=== PATIENT | male | born 1965 | race Caucasian/White ===

== ENCOUNTER 2017-03-20 04:30 | Observation (INO) | payer OTHER ==
[~2017-03-20] VITALS: Ht 182.9 cm; Wt 75.0 kg
[2017-03-20 04:33] VITALS: BP 168/81; PULSE 77; RESP 20; TEMP 97.3; O2SAT 99
[2017-03-20] MEDS ORDERED: SODIUM CHLORIDE 0.9% FLUSH 10 ML FLUSH IVF PRN (05:15)
[2017-03-20 05:33] LABS: AUTOMATED NEUTROPHIL # 3.9 TH/MM3 (1.8-7.7); BASOPHIL # 0.1 TH/MM3 (0-0.2); BASOPHIL % 0.8 % (0.0-2.0); EOSINOPHIL # 0.2 TH/MM3 (0-0.4); HEMATOCRIT 37.2 % (39.0-51.0); HEMOGLOBIN 13.2 GM/DL (13.0-17.0); LYMPH % 30.9 % (9.0-44.0); LYMPHOCYTE # 2.2 TH/MM3 (1.0-4.8); MEAN CELL VOLUME 85.3 FL (80.0-100.0); MEAN CORPUSCULAR HEMOGLOBIN 30.2 PG (27.0-34.0); MEAN CORPUSCULAR HGB CONC 35.4 % (32.0-36.0); MEAN PLATELET VOLUME 6.5 FL (7.0-11.0); MONO % 9.4 % (0.0-8.0); MONOCYTE # 0.7 TH/MM3 (0-0.9); NEUT % 55.9 % (16.0-70.0); PLATELET COUNT 195 TH/MM3 (150-450); RED BLOOD COUNT 4.36 MIL/MM3 (4.50-5.90); RED CELL DISTRIBUTION WIDTH 12.5 % (11.6-17.2)
--- NOTE | 2017-03-20 05:35 | RADRPT ---
EXAM DATE/TIME: 03/20/2017 05:19 [place] COMPARISON: CT ABDOMEN & PELVIS W/O CONTRAST, June 12, 2012, 11:15. INDICATIONS : Left flank pain. ORAL CONTRAST: No oral contrast ingested. RADIATION DOSE: 13.12 CTDIvol (mGy) MEDICAL HISTORY : Renal calculi. SURGICAL HISTORY : None. ENCOUNTER: Initial ACUITY: 1 day PAIN SCALE: 10/10 LOCATION: Left flank TECHNIQUE: Volumetric scanning of the abdomen and pelvis was performed. Using automated exposure control and ad justment of the mA and/or kV according to patient size, radiation dose was kept as low as reasonably achievable to obtain optimal diagnostic quality images. DICOM format image data is available electro nically for review and comparison. FINDINGS: LOWER LUNGS: The visualized lower lungs are clear. LIVER: Homogeneous density without lesion. There is no dilation of the biliary tree. No calcified gallston es. SPLEEN: Normal size without lesion. PANCREAS: Within normal limits. KIDNEYS: Normal in size and shape. There is moderate to severe left hydronephrosis caused by 2 stones within the left ureter. The larger more distal stone measures 6 x 5 mm and is located in the upper pelvis at the level of the iliac vessel crossing. The slightly smaller more proximal stone is in the mid urete r measuring 6 x 3 mm. There additionally is a 2 mm nonobstructing stone in the left lower pole collec ting system and a 2 mm nonobstructing stone in the right mid renal collecting system. There is an 18 mm cyst at the lower pole of the right kidney. ADRENAL GLANDS: Within normal limits. VASCULAR: There is no aortic aneurysm. There is mild atherosclerotic disease. BOWEL/MESENTERY: The stomach, small bowel, and colon demonstrate no acute abnormality. There is no free intraperitone al air or fluid. ABDOMINAL WALL: Within normal limits. RETROPERITONEUM: There is no lymphadenopathy. BLADDER: No wall thickening or mass. REPRODUCTIVE: Within normal limits. INGUINAL: There is no lymphadenopathy. There is a small fat containing right inguinal hernia. MUSCULOSKELETAL: Normal degenerative changes of the spine. CONCLUSION: 1. There are 2 stones within the left ureter causing moderate to severe left hydronephrosis, hydroure ter, and perinephric inflammation. The larger more distal stone measures 6 x 5 mm and the smaller mor e proximal stone measures 6 x 3 mm. 2. There is an additional 2 mm nonobstructing stone within each kidney. Elijah Hanley MD on March 20, 2017 at 5:28 Board Certified Radiologist. This report was verified electronically.
[2017-03-20 05:43] LABS: BICARBONATE 25.5 MEQ/L (21.0-32.0); CALCIUM 8.3 MG/DL (8.5-10.1); CREATININE 1.48 MG/DL (0.60-1.30)
[2017-03-20] MEDS ORDERED: KETOROLAC TROMETHAMINE 30 MG/ML (IVP) VIAL IV PUSH ONE (05:45)
[2017-03-20] MEDS ORDERED: MORPHINE SULFATE 4 MG/ML INJ IV PUSH ONE (05:45)
--- NOTE | 2017-03-20 05:59 | PD ---
HPI . Flank/kidney pain Chief Complaint: Flank/Kidney Pain Time Seen by Provider: 04:39 Travel History International Travel<30 days: No Contact w/Intl Traveler<30days: No Traveled to known affect area: No History of Present Illness HPI 51-year-old male history kidney stones complains of having severe left flank pain consistent with probable renal colic. Patient has difficulty urinating consistent with prior presentation of renal colic. Patient denies fevers chills sweats, dysuria frequency frequency, or ned hematuria. Positive nausea no vomiting or diarrhea. PFSH Past Medical History Narrative Medical Past medical history reviewed. Prior lithotripsy Cancer: No Cardiovascular Problems: No Diabetes: No Endocrine: No Gastrointestinal Disorders: No Genitourinary: Yes (HISTORY OF KIDNEY STONES (MULTIPLE) ) Hepatitis: No Hiatal Hernia: No Hypertension: No Immune Disorder: No Kidney Stones: Yes Medical other: No Musculoskeletal: Yes (LOW BACK PAIN; ARTHRITIS, RIGHT SHOULDER) Neurologic: No Psychiatric: No Reproductive: No Respiratory: No Immunizations Current: Yes Thyroid Disease: No Tetanus Vaccination: Unknown Influenza Vaccination: No Past Surgical History Abdominal Surgery: No AICD: No Body Medical Devices: NONE Cardiac Surgery: No Ear Surgery: No Endocrine Surgery: No Eye Surgery: No Genitourinary Surgery: Yes (KIDNEY STONES) Joint Replacement: No Neurologic Surgery: No Oral Surgery: No Pacemaker: No Thoracic Surgery: No Other Surgery: Yes Social History Alcohol Use: No Tobacco Use: Yes (1/2 PACK PER DAY) Substance Use: No Allergies-Medications (Allergen,Severity, Reaction): Coded Allergies: hydrocodone (Unverified Adverse Reaction, Severe, Nausea/Vomiting, 03/20/17) GETS VERY HYPER Reported Meds & Prescriptions Reported Meds & Active Scripts Active Narrative Medication Allergies and medications reviewed. Patient's hydrocodone allergy is nausea and hyperactivity, no urticaria or anaphylactic reaction Review of Systems Except as stated in HPI: all other systems reviewed are Neg General / Constitutional: No: Fever Eyes: No: Visual changes HENT: No: Headaches Cardiovascular: No: Chest Pain or Discomfort Respiratory: No: Shortness of Breath Gastrointestinal: No: Abdominal Pain Genitourinary: Positive: Decreased Urinary Output, Flank Pain, No: Urgency, Frequency, Dysuria, Hematuria Musculoskeletal: No: Pain Skin: No Rash Neurologic: No: Weakness Psychiatric: No: Depression Endocrine: No: Polydipsia Hematologic/Lymphatic: No: Easy Bruising Physical Exam Narrative GENERAL: Awake alert oriented 3 no acute distress but uncomfortable. SKIN: Warm and dry. Color is normal no diaphoresis cyanosis or pallor HEAD: Atraumatic. Normocephalic. EYES: Pupils equal and round. No scleral icterus. No injection or drainage. ENT: No nasal bleeding or discharge. Mucous membranes pink and moist. NECK: Trachea midline. No JVD. Supple nontender full range of motion CARDIOVASCULAR: Regular rate and rhythm. S1-S2 no murmurs rubs gallops RESPIRATORY: No accessory muscle use. Clear to auscultation. Breath sounds equal bilaterally. GASTROINTESTINAL: Abdomen soft, non-tender, nondistended. Hepatic and splenic margins not palpable. No CVA tenderness MUSCULOSKELETAL: Extremities without clubbing, cyanosis, or edema. No obvious deformities. NEUROLOGICAL: Awake and alert. No obvious cranial nerve deficits. Motor grossly within normal limits. Five out of 5 muscle strength in the arms and legs. Normal speech. PSYCHIATRIC: Appropriate mood and affect; insight and judgment normal. Data Data Last Documented VS Vital Signs Date Time Temp Pulse Resp B/P (MAP) Pulse Ox O2 Delivery O2 Flow Rate FiO2 03/20/17 04:33 97.3 77 20 168/81 (110) 99 Orders Orders Complete Blood Count With Diff (03/20/17 05:03) Basic Metabolic Panel (Bmp) (03/20/17 05:03) Urinalysis - C+S If Indicated (03/20/17 05:03) Ct Abd/Pel W/O Iv Contrast (03/20/17 05:03) Ecg Monitoring (03/20/17 05:03) Iv Access Insert/Monitor (03/20/17 05:03) Sodium Chloride 0.9% Flush (Ns Flush) (03/20/17 05:15) Ed Poc Ultrasound (03/20/17 05:03) Ketorolac Inj (Toradol Inj) (03/20/17 05:45) Morphine Inj (Morphine Inj) (03/20/17 05:45) Labs Laboratory Tests Test 03/20/17 05:11 White Blood Count 7.0 TH/MM3 Red Blood Count 4.36 MIL/MM3 Hemoglobin 13.2 GM/DL Hematocrit 37.2 % Mean Corpuscular Volume 85.3 FL Mean Corpuscular Hemoglobin 30.2 PG Mean Corpuscular Hemoglobin Concent 35.4 % Red Cell Distribution Width 12.5 % Platelet Count 195 TH/MM3 Mean Platelet Volume 6.5 FL Neutrophils (%) (Auto) 55.9 % Lymphocytes (%) (Auto) 30.9 % Monocytes (%) (Auto) 9.4 % Eosinophils (%) (Auto) 3.0 % Basophils (%) (Auto) 0.8 % Neutrophils # (Auto) 3.9 TH/MM3 Lymphocytes # (Auto) 2.2 TH/MM3 Monocytes # (Auto) 0.7 TH/MM3 Eosinophils # (Auto) 0.2 TH/MM3 Basophils # (Auto) 0.1 TH/MM3 CBC Comment DIFF FINAL Differential Comment Blood Urea Nitrogen 24 MG/DL Creatinine 1.48 MG/DL Random Glucose 90 MG/DL Calcium Level 8.3 MG/DL Sodium Level 139 MEQ/L Potassium Level 4.0 MEQ/L Chloride Level 107 MEQ/L Carbon Dioxide Level 25.5 MEQ/L Anion Gap 7 MEQ/L Estimat Glomerular Filtration Rate 50 ML/MIN [facility] Medical Decision Making Medical Screen Exam Complete: Yes Emergency Medical Condition: Yes Medical Record Reviewed: Yes Differential Diagnosis Renal colic, urinary retention, pyelonephritis Narrative Course CT abdomen and pelvis noncontrast reviewed, large multiple ureteral stones left mid ureter with moderate to severe hydroureter and hydronephrosis with perinephric stranding. Labs reviewed, patient has elevated creatinine 1.48 with a decreased GFR of 50. Case discussed with Dr. Ryan from urology, care plan developed. Patient be admitted to hospital service, evaluation for possible lithotripsy later today. [facility], patient to be admitted to Dr. Elizabeth's service Diagnosis Primary Impression: Renal colic on left side Additional Impression: Ureterolithiasis Admitting Information Admitting Physician Requests: Observation Jaciel Thacker MD Mar 20, 2017 05:59
[2017-03-20] MEDS ORDERED: LISI2.5T3 PO (07:01)
[2017-03-20] MEDS ORDERED: HYDR12.57 PO (07:01)
[2017-03-20 07:38] VITALS: BP 134/82; PULSE 63; RESP 16; O2SAT 99
[2017-03-20] MEDS ORDERED: MORPHINE SULFATE 4 MG/ML INJ IV PUSH PRN (07:45)
[2017-03-20] MEDS ORDERED: SODIUM CHLORIDE 0.9% FLUSH 10 ML FLUSH IV FLUSH PRN (07:45)
[2017-03-20] MEDS ORDERED: MAGNESIUM HYDROXIDE SUSP 30 ML CUP PO PRN (07:45)
[2017-03-20] MEDS ORDERED: ONDANSETRON HCL 4 MG/2 ML VIAL IVP PRN (07:45)
[2017-03-20] MEDS ORDERED: NALOXONE HCL 0.4 MG/ML AMP IV PUSH PRN (07:45)
[2017-03-20] MEDS ORDERED: ACETAMINOPHEN 325 MG TAB PO PRN (07:45)
--- NOTE | 2017-03-20 07:56 | HHI.HP ---
HPI Service [facility] Hospitalists Primary Care Physician Joaquín Centeno D.O. Admission Diagnosis Left Obstructive Ureterolithiasis, Renal Colic Chief Complaint: left flank pain and difficulty passing urine Travel History International Travel<30 Days: No Contact w/Intl Traveler <30 Da: No Traveled to Known Affected Are: No History of Present Illness This is a 51 year old male patient with past medical history which includes anxiety, chronic kidney disease stage III, GERD, hypertension, and kidney stones. Patient presents to the ER with complains of severe left flank pain consistent. Patient report that the left flank pain started Sunday night and since then has gotten progressively worse. The pain does radiant around the left side to abdomen area. Patient also has difficulty urinating similar to his prior episode of obstructing renal calculi. Patient had associated nausea but no vomiting. Patient has had two lithotripsies in the past. His last lithotripsy was 6 years ago. Patient denies fevers chills sweats, dysuria frequency frequency, or ned hematuria. CT abdomen and pelvis reviewed and reveals there are 2 stones within the left ureter causing moderate to severe left hydronephrosis, hydroureter, para- nephrotic inflammation the large more distal stone measures 6 x 5 mm and a smaller more proximal stone measures 6 x 3 mm. There is additional 2 mm nonobstructing stone in each kidney Past Family Social History Past Medical History anxiety, chronic kidney disease stage III, GERD, hypertension, and kidney stones Past Surgical History Right knee arthroscopically Lithotripsy Reported Medications Hydrochlorothiazide 12.5 Mg Cap 12.5 Mg PO BID Lisinopril 2.5 Mg Tab 2.5 Mg PO DAILY Allergies: Coded Allergies: hydrocodone (Unverified Adverse Reaction, Severe, Nausea/Vomiting, 03/20/17) GETS VERY HYPER Family History Reviewed and noncontributory Social History Former tobacco user quit smoking 3 years ago prior to that smoked 1 PPD for 20 years Occasional EtOH use Denies illicit drug use Physical Exam Vital Signs Vital Signs Date Time Temp Pulse Resp B/P (MAP) Pulse Ox O2 Delivery O2 Flow Rate FiO2 03/20/17 07:38 63 16 134/82 (99) 99 Room Air 03/20/17 04:33 97.3 77 20 168/81 (110) 99 Physical Exam GENERAL: This is a well-nourished, well-developed patient, in no apparent distress. SKIN: No rashes, ecchymoses or lesions. Cool and dry. HEAD: Atraumatic. Normocephalic. No temporal or scalp tenderness. EYES: Pupils equal round and reactive. Extraocular motions intact. No scleral icterus. No injection or drainage. ENT: Nose without bleeding, purulent drainage or septal hematoma. Throat without erythema, tonsillar hypertrophy or exudate. Uvula midline. Airway patent. NECK: Trachea midline. No JVD or lymphadenopathy. Supple, nontender, no meningeal signs. CARDIOVASCULAR: Regular rate and rhythm without murmurs, gallops, or rubs. RESPIRATORY: Clear to auscultation. Breath sounds equal bilaterally. No wheezes , rales, or rhonchi. GASTROINTESTINAL: Abdomen soft, non-tender, nondistended. No hepato-splenomegaly , or palpable masses. No guarding. MUSCULOSKELETAL: Extremities without clubbing, cyanosis, or edema. No joint tenderness, effusion, or edema noted. No calf tenderness. Negative Homans sign bilaterally. NEUROLOGICAL: Awake and alert. Cranial nerves II through XII intact. Motor and sensory grossly within normal limits. Five out of 5 muscle strength in all muscle groups. Normal speech. Laboratory Laboratory Tests Test 03/20/17 05:11 White Blood Count 7.0 Red Blood Count 4.36 Hemoglobin 13.2 Hematocrit 37.2 Mean Corpuscular Volume 85.3 Mean Corpuscular Hemoglobin 30.2 Mean Corpuscular Hemoglobin Concent 35.4 Red Cell Distribution Width 12.5 Platelet Count 195 Mean Platelet Volume 6.5 Neutrophils (%) (Auto) 55.9 Lymphocytes (%) (Auto) 30.9 Monocytes (%) (Auto) 9.4 Eosinophils (%) (Auto) 3.0 Basophils (%) (Auto) 0.8 Neutrophils # (Auto) 3.9 Lymphocytes # (Auto) 2.2 Monocytes # (Auto) 0.7 Eosinophils # (Auto) 0.2 Basophils # (Auto) 0.1 CBC Comment DIFF FINAL Differential Comment Blood Urea Nitrogen 24 Creatinine 1.48 Random Glucose 90 Calcium Level 8.3 Sodium Level 139 Potassium Level 4.0 Chloride Level 107 Carbon Dioxide Level 25.5 Anion Gap 7 Estimat Glomerular Filtration Rate 50 Result Diagram: 03/20/1751003/20/17510 Caprini VTE Risk Assessment Caprini VTE Risk Assessment: No/Low Risk (score <= 1) Caprini Risk Assessment Model Point Value = 1 Point Value = 2 Point Value = 3 Point Value = 5 Age 41-60 Minor surgery BMI > 25 kg/m2 Swollen legs Varicose veins or History of unexplained or recurrent spontaneous Oral contraceptives or hormone replacement Sepsis (< 1 month) Serious lung disease, including pneumonia (< 1 month) Abnormal pulmonary function Acute myocardial infarction Congestive heart failure (< 1 month) History of inflammatory bowel disease Medical patient at bed rest Age 61-74 Arthroscopic surgery Major open surgery (> 45 min) Laparoscopic surgery (> 45 min) Malignancy Confined to bed (> 72 hours) Immobilizing plaster cast Central venous access Age >= 75 History of VTE Family history of VTE Factor V Leiden Prothrombin [id number] Lupus anticoagulant Anticardiolipin antibodies Elevated serum homocysteine Heparin-induced thrombocytopenia Other congenital or acquired thrombophilia Stroke (< 1 month) Elective arthroplasty Hip, pelvis, or leg fracture Acute spinal cord injury (< 1 month) Prophylaxis Regimen Total Risk Factor Score Risk Level Prophylaxis Regimen 0-1 Low Early ambulation 2 Moderate Order ONE of the following: *Sequential Compression Device (SCD) *Heparin 5000 units SQ BID 3-4 Higher Order ONE of the following medications: *Heparin 5000 units SQ TID *Enoxaparin/Lovenox 40 mg SQ daily (WT < 150 kg, CrCl > 30 mL/min) *Enoxaparin/Lovenox 30 mg SQ daily (WT < 150 kg, CrCl > 10-29 mL/min) *Enoxaparin/Lovenox 30 mg SQ BID (WT < 150 kg, CrCl > 30 mL/min) AND/OR *Sequential Compression Device (SCD) 5 or more Highest Order ONE of the following medications: *Heparin 5000 units SQ TID (Preferred with Epidurals) *Enoxaparin/Lovenox 40 mg SQ daily (WT < 150 kg, CrCl > 30 mL/min) *Enoxaparin/Lovenox 30 mg SQ daily (WT < 150 kg, CrCl > 10-29 mL/min) *Enoxaparin/Lovenox 30 mg SQ BID (WT < 150 kg, CrCl > 30 mL/min) AND *Sequential Compression Device (SCD) Assessment and Plan Problem List: (1) Hydronephrosis, left ICD Codes: N13.30 - Unspecified hydronephrosis Plan: Patient presents to [facility] ER with complains of severe left flank pain consistent with probable renal colic. Patient has difficulty urinating similar to his prior episode of obstructing renal calculi. Patient has associated nausea but no vomiting. CT abdomen and pelvis reviewed and reveals there are 2 stones within the left ureter causing moderate to severe left hydronephrosis, hydroureter, para- nephrotic inflammation the large more distal stone measures 6 x 5 mm and a smaller more proximal stone measures 6 x 3 mm. There is additional 2 mm nonobstructing stone in each kidney [facility] provider discuss case with neurology Dr. Epps, plan for lithotripsy later today IV fluid Rocephin IV Morphine as needed for pain NPO (2) Renal calculus, left ICD Codes: N20.0 - Renal calculus, left Status: Acute (3) HTN (hypertension) ICD Codes: I10 - Essential (primary) hypertension Plan: Patient takes Lisinopril 2.5 mg at home will hold at this time monitor BP Assessment and Plan Patient examined. Assessment and plan formulated with Brandy Roque PA-C. I agree with the above. 2 left ureter stones. hydroureter/nephosis cont pain control and ivf. flomax added await Urology. Brandy Roque Mar 20, 2017 07:56 Luis Felipe Simmons MD Mar 20, 2017 13:59
[2017-03-20] MEDS: SODIUM CHLORIDE 0.9% FLUSH 10 ML FLUSH IV FLUSH SCH ×2 (08:35→21:00)
[2017-03-20] MEDS: cefTRIAXone INJ 1,000 MG in SODIUM CHLORIDE 0.9% INJ 100 ML IV SCH (08:35)
[2017-03-20] MEDS: DOCUSATE SODIUM 50 MG/SENNA 8.6 MG TAB PO SCH ×2 (08:36→21:55)
[2017-03-20 09:45] LABS: BILIRUBIN, URINE NEG (NEG); BLOOD, URINE LARGE (NEG); GLUCOSE,URINE NEG (NEG); KETONE, URINE NEG (NEG); NITRITE,URINE NEG (NEG); PH, URINE 5.5 (5.0-8.5); URINE COLOR YELLOW (YELLW/STRAW); URINE LEUKOCYTE ESTERASE NEG (NEG)
[2017-03-20] MEDS: SODIUM CHLOR 0.9% 1000 ML INJ 1,000 ML IV SCH ×2 (09:45→21:55)
[2017-03-20 10:17] VITALS: BP 140/81; PULSE 62; RESP 18; TEMP 97.5; O2SAT 98
[2017-03-20] MEDS ORDERED: TAMSULOSIN HCL 0.4 MG CAP PO ONE (12:30)
[2017-03-20 12:34] VITALS: BP 143/81; PULSE 65; RESP 18; TEMP 97.7; O2SAT 97
[2017-03-20] MEDS: MORPHINE SULFATE 4 MG/ML INJ IV PUSH PRN ×4 (12:41→22:05)
--- NOTE | 2017-03-20 15:21 | PD.CONS ---
HPI Service Urology Consult Requested By Randal Roque Reason for Consult Obstructing left ureteral calculi Primary Care Physician Joaquín Centeno D.O. Diagnosis: (1) Hydronephrosis, left ICD Code: N13.30 - Unspecified hydronephrosis (2) Renal calculus, left ICD Code: N20.0 - Renal calculus, left (3) HTN (hypertension) ICD Code: I10 - Essential (primary) hypertension History of Present Illness 51-year-old gentleman with history of recurrent nephrolithiasis who is status post extracorporeal shockwave lithotripsy approximately [address] Mike who presents now with left flank pain that began late Sunday evening. The symptoms became progressively worse and thus he presented to the emergency room for further evaluation. While in the emergency room, a CT scan stone protocol was performed that demonstrated to obstructing mid left ureteral stones measuring 6 mm in size each. Also noted were bilateral small 2 mm renal calculi. Patient was admitted for pain control and a urology consult placed. Patient has been afebrile. He denies gross hematuria. Review of Systems Constitutional: DENIES: Fever, Chills Gastrointestinal: COMPLAINS OF: Abdominal pain Genitourinary: DENIES: Hematuria Musculoskeletal: COMPLAINS OF: Back pain (Left side left flank) Except as stated in HPI: all other systems reviewed are Neg Past Family Social History Past Medical History Recurrent nephrolithiasis Chronic kidney disease stage III GERD Hypertension Past Surgical History Status post right knee arthroscopy Status post multiple shockwave lithotripsy procedures Reported Medications Refer to EMR Allergies: Coded Allergies: hydrocodone (Unverified Adverse Reaction, Severe, Nausea/Vomiting, 03/20/17) GETS VERY HYPER Active Ordered Medications Refer to EMR Family History Reviewed and noncontributory Social History Former smoker 1 pack per day 20 years who quit 3 years ago Occasional alcohol use Denies illicit drug usage Physical Exam Vital Signs Date Time Temp Pulse Resp B/P (MAP) Pulse Ox O2 Delivery O2 Flow Rate FiO2 03/20/17 12:34 97.7 65 18 143/81 (101) 97 03/20/17 10:17 97.5 62 18 140/81 (100) 98 03/20/17 09:40 03/20/17 07:38 63 16 134/82 (99) 99 Room Air 03/20/17 04:33 97.3 77 20 168/81 (110) 99 Physical Exam GENERAL: This is a well-nourished, well-developed patient, in no apparent distress. SKIN: No rashes, ecchymoses or lesions. Cool and dry. HEAD: Atraumatic. Normocephalic. No temporal or scalp tenderness. EYES: Pupils equal round and reactive. Extraocular motions intact. No scleral icterus. No injection or drainage. ENT: Nose without bleeding, purulent drainage or septal hematoma. Throat without erythema, tonsillar hypertrophy or exudate. Uvula midline. Airway patent. NECK: Trachea midline. No JVD or lymphadenopathy. Supple, nontender, no meningeal signs. CARDIOVASCULAR: Regular rate and rhythm without murmurs, gallops, or rubs. RESPIRATORY: Clear to auscultation. Breath sounds equal bilaterally. No wheezes , rales, or rhonchi. GASTROINTESTINAL: Abdomen soft, non-tender, nondistended. No hepato-splenomegaly , or palpable masses. No guarding. GENITOURINARY: No CVA tenderness, bladder not distended MUSCULOSKELETAL: Extremities without clubbing, cyanosis, or edema. No joint tenderness, effusion, or edema noted. No calf tenderness. Negative Homans sign bilaterally. NEUROLOGICAL: Awake and alert. Cranial nerves II through XII intact. Motor and sensory grossly within normal limits. Five out of 5 muscle strength in all muscle groups. Normal speech. Lab results reviewed: Yes Laboratory Tests Test 03/20/17 05:11 03/20/17 09:15 White Blood Count 7.0 Red Blood Count 4.36 Hemoglobin 13.2 Hematocrit 37.2 Mean Corpuscular Volume 85.3 Mean Corpuscular Hemoglobin 30.2 Mean Corpuscular Hemoglobin Concent 35.4 Red Cell Distribution Width 12.5 Platelet Count 195 Mean Platelet Volume 6.5 Neutrophils (%) (Auto) 55.9 Lymphocytes (%) (Auto) 30.9 Monocytes (%) (Auto) 9.4 Eosinophils (%) (Auto) 3.0 Basophils (%) (Auto) 0.8 Neutrophils # (Auto) 3.9 Lymphocytes # (Auto) 2.2 Monocytes # (Auto) 0.7 Eosinophils # (Auto) 0.2 Basophils # (Auto) 0.1 CBC Comment DIFF FINAL Differential Comment Blood Urea Nitrogen 24 Creatinine 1.48 Random Glucose 90 Calcium Level 8.3 Sodium Level 139 Potassium Level 4.0 Chloride Level 107 Carbon Dioxide Level 25.5 Anion Gap 7 Estimat Glomerular Filtration Rate 50 Urine Color YELLOW Urine Turbidity HAZY Urine pH 5.5 Urine Specific [place] 1.025 Urine Protein 30 Urine Glucose (UA) NEG Urine Ketones NEG Urine Occult Blood LARGE Urine Nitrite NEG Urine Bilirubin NEG Urine Urobilinogen LESS THAN 2.0 Urine Leukocyte Esterase NEG Urine RBC 143 Urine WBC 1 Microscopic Urinalysis Comment CULT NOT INDICATED Result Diagram: 03/20/17 0511 03/20/17 0511 Personally reviewed images: Yes Imaging Last Impressions Abdomen/Pelvis CT 03/20/17 0503 Signed Impressions: Service Date/Time: Monday, March 20, 2017 05:19 - CONCLUSION: 1. There are 2 stones within the left ureter causing moderate to severe left hydronephrosis , hydroureter, and perinephric inflammation. The larger more distal stone measures 6 x 5 mm and the smaller more proximal stone measures 6 x 3 mm. 2. There is an additional 2 mm nonobstructing stone within each kidney. Elijah Hanley MD Assessment and Plan Assessment and Plan Urologic impression: #1 2 obstructing left mid ureteral calculi each measuring 6 mm #2 Bilateral 2 mm renal calculi Plan: 1. N.p.o. after midnight 2. Patient scheduled for cystoscopy, left retrograde pyelogram and left ureteral stent placement at 12:30 PM tomorrow 3. Will eventually require outpatient shockwave lithotripsy Eyad Epps MD Mar 20, 2017 15:21
[2017-03-20 16:08] VITALS: BP 148/87; PULSE 82; RESP 18; TEMP 99; O2SAT 99
[2017-03-20] MEDS ORDERED: CHLORHEXIDINE GLUCONATE 2 % 1 PACK (2 CLOTHS) TOPICAL PRN (17:15)
[2017-03-20] MEDS ORDERED: LACTATED RINGER'S 1000 ML IV PRN (17:15)
[2017-03-20] MEDS ORDERED: METOPROLOL TARTRATE 25 MG TAB PO PRN (17:15)
[2017-03-20] MEDS ORDERED: SODIUM CHLORID 0.9% 500 ML IV PRN (17:15)
[2017-03-20] MEDS ORDERED: POVIDONE IODINE 5% (ANTISEPSIS KIT) 4 APPLICATIONS EACH NARE PRN (17:15)
[2017-03-20 20:00] VITALS: BP 135/79; PULSE 75; RESP 20; TEMP 98.9; O2SAT 96
[2017-03-21] MEDS: MORPHINE SULFATE 4 MG/ML INJ IV PUSH PRN ×3 (01:05→07:32)
[2017-03-21 01:22] VITALS: BP 128/75; PULSE 80; RESP 17; TEMP 98.7; O2SAT 95
[2017-03-21 04:35] VITALS: BP 138/81; PULSE 80; RESP 16; TEMP 99.4; O2SAT 96
[2017-03-21 07:43] VITALS: O2SAT 92
[2017-03-21 08:22] LABS: BASOPHIL # 0.1 TH/MM3 (0-0.2); EOSINOPHIL # 0.2 TH/MM3 (0-0.4); EOSINOPHIL % 1.9 % (0.0-4.0); HEMATOCRIT 34.5 % (39.0-51.0); HEMOGLOBIN 12.3 GM/DL (13.0-17.0); LYMPH % 15.7 % (9.0-44.0); LYMPHOCYTE # 1.5 TH/MM3 (1.0-4.8); MEAN CORPUSCULAR HEMOGLOBIN 30.3 PG (27.0-34.0); MEAN CORPUSCULAR HGB CONC 35.6 % (32.0-36.0); MONOCYTE # 0.9 TH/MM3 (0-0.9); NEUT % 72.4 % (16.0-70.0); PLATELET COUNT 169 TH/MM3 (150-450); RED BLOOD COUNT 4.06 MIL/MM3 (4.50-5.90); RED CELL DISTRIBUTION WIDTH 12.8 % (11.6-17.2); WHITE BLOOD COUNT 9.6 TH/MM3 (4.0-11.0)
[2017-03-21 08:50] LABS: BICARBONATE 25.9 MEQ/L (21.0-32.0); CALCIUM 8.5 MG/DL (8.5-10.1); CREATININE 1.87 MG/DL (0.60-1.30)
[2017-03-21] MEDS: DOCUSATE SODIUM 50 MG/SENNA 8.6 MG TAB PO SCH (09:00)
[2017-03-21] MEDS ORDERED: TAMSULOSIN HCL 0.4 MG CAP PO SCH (09:00)
[2017-03-21] MEDS: SODIUM CHLORIDE 0.9% FLUSH 10 ML FLUSH IV FLUSH SCH (09:00)
[2017-03-21 09:12] VITALS: BP 130/74; PULSE 86; RESP 18; TEMP 99.6; O2SAT 96
[2017-03-21] MEDS: SODIUM CHLOR 0.9% 1000 ML INJ 1,000 ML IV SCH (09:34)
[2017-03-21] MEDS: cefTRIAXone INJ 1,000 MG in SODIUM CHLORIDE 0.9% INJ 100 ML IV SCH (09:35)
[2017-03-21] MEDS ORDERED: IOHEXOL 300 MG/ML 100 ML BTL (for Rad CT) OTHER ONE (11:14)
--- NOTE | 2017-03-21 11:20 | EKG ---
Date Performed: 03/20/2017 Time Performed: 21:49:24 PTAGE: 51 years EKG: Sinus rhythm MARKED LEFT AXIS DEVIATION INTRAVENTRICULAR CONDUCTION DELAY POSSIBLE LATERAL MYOCARDIAL INFARCTION ABNORMAL ECG PREVIOUS TRACING : 03/20/2017 17.45 DOCTOR: Sukhwinder Hernandes Interpretating Date/Time 03/21/2017 11:18:57
[2017-03-21] MEDS ORDERED: SODIUM CHLORIDE 0.9% 20 ML VIAL IV ONE (12:00)
[2017-03-21] MEDS ORDERED: PHENYLEPH/NS 1000 MCG/10 ML SYR IV ONE (12:00)
[2017-03-21] MEDS ORDERED: PROPOFOL 200 MG/20 ML AMP IV ONE (12:00)
[2017-03-21] MEDS ORDERED: NEOSTIGMINE 5 MG/5 ML SYRINGE IV PUSH ONE (12:00)
[2017-03-21] MEDS ORDERED: ONDANSETRON HCL 4 MG/2 ML VIAL IV ONE (12:00)
[2017-03-21] MEDS ORDERED: ROCURONIUM INJ 50 MG/5 ML SYRINGE IV PUSH ONE (12:00)
[2017-03-21] MEDS ORDERED: GLYCOPYRROLATE 1 MG/5 ML SYRINGE IV PUSH ONE (12:00)
[2017-03-21] MEDS ORDERED: LIDOCAINE HCL 1% PF 5 ML SYRINGE OTHER ONE (12:00)
[2017-03-21] MEDS ORDERED: DEXAMETHASONE SOD PHOS 4 MG/ML VIAL IV ONE (12:00)
--- NOTE | 2017-03-21 12:55 | EKG ---
Date Performed: 03/20/2017 Time Performed: 17:45:38 PTAGE: 51 years EKG: Sinus rhythm MARKED LEFT AXIS DEVIATION INTRAVENTRICULAR CONDUCTION DELAY ABNORMAL ECG NO PREVIOUS TRACING DOCTOR: Sukhwinder Hernandes Interpretating Date/Time 03/21/2017 12:49:23
[2017-03-21] MEDS ORDERED: LISI2.5T3 PO (13:19)
[2017-03-21] MEDS ORDERED: HYDR12.57 PO (13:19)
[2017-03-21] MEDS ORDERED: CIPR-9 PO (13:27)
[2017-03-21] MEDS ORDERED: HYDR-3288 PO (13:27)
[2017-03-21] MEDS ORDERED: PHEN0.4T PO (13:27)
--- NOTE | 2017-03-21 13:34 | PD.OP ---
Operative Report Date of Surgery: Mar 21, 2017 Preoperative Diagnosis: Left hydronephrosis with left ureteral calculi Postoperative Diagnosis: Same Procedure: Left after corporeal shockwave lithotripsy; cystoscopy, left retrograde pyelogram, ureteroscopy, laser lithotripsy, stone extraction, left double-J stent insertion Anesthesia: Gen. Surgeon: Juaquin Mike Rig Operator(s): None Resident Surgeon: None Operation and Findings: 51-year-old man with findings of left hydronephrosis and to lower ureteral stones. A 8 mm stone and a 6 mm stone were both identified in the left ureter. Decision is made to bring the patient to the operating room and undergo cystoscopy with left double-J stent insertion and possible left extracorporeal shockwave lithotripsy. Risk and benefits were discussed preoperatively and he was willing to proceed. She was brought to the operating room and identified by myself as Ricci Latham. He was placed in dorsal lithotomy position, prepped and draped in usual sterile fashion, received preprocedure antibiotics, and general anesthesia was administered. 22 Sudanese scope was inserted in the bladder and at the left ureteral orifice a large stone was noted to be the left UO. Attempt was made to use a nitinol basket to remove the stone but this was unsuccessful. The rigid ureteroscope was then brought in and placed into the bladder and using the 365 laser fiber the stone was then broken up. Nitinol basket was used to remove the residual stone fragments and these were sent to pathology. The cystoscope was then inserted into the bladder and a 5 Sudanese two-way catheter was inserted into the still left ureteral orifice. Retrograde pyelogram was performed. The stone was then demonstrated in the mid ureter which is partially 6 mm in size. Extracorporeal shockwave lithotripsy was then performed on this left ureteral mid stone. Patient received a total of 3000 shocks in this area and good fragmentation of the stone was then visualized. The cystoscope was then reinserted at the end of the procedure and then a 0.35 sensor wire was then passed up into the kidney. A 28 cm 6 Sudanese left double-J stent was placed with a good curl in the kidney and a good curl in the bladder. The patient was then awoken and transferred to her room in stable condition. He tolerated procedure well. He will follow-up in one month to the office undergo cystoscopy with left double-J stent removal. A CT scan of the abdomen and pelvis without contrast will be performed prior to his visit. His stones were difficult to visualize on fluoroscopy indicating most likely he has uric acid stone formation. Juaquin Mike DO Mar 21, 2017 13:34
[2017-03-21] MEDS ORDERED: MIDAZOLAM HCL 2 MG/2 ML VIAL ONE (13:48)
[2017-03-21] MEDS ORDERED: BELLADONNA ALKALOIDS/OPIUM 60 MG SUPP RECTAL ONE (13:56)
--- NOTE | 2017-03-21 14:31 | HHI.PR ---
Subjective Remarks Pt had cystoscopy/ureteroscopy with laser lithotripsy, stone extraction, left double-J stent insertion on 03/21/[address] Mike Pt doing well post-procedurally Anxious to go home. Objective Vitals Vital Signs Date Time Temp Pulse Resp B/P (MAP) Pulse Ox O2 Delivery O2 Flow Rate FiO2 03/21/17 13:35 99.3 91 16 126/65 (85) 97 Nasal Cannula 3 03/21/17 09:12 99.6 86 18 130/74 (92) 96 03/21/17 07:43 92 21 03/21/17 06:15 21 03/21/17 04:35 99.4 80 16 138/81 (100) 96 03/21/17 01:22 98.7 80 17 128/75 (92) 95 03/20/17 20:00 98.9 75 20 135/79 (97) 96 03/20/17 16:08 99.0 82 18 148/87 (107) 99 03/21/17 03/21/17 03/22/17 15:00 23:00 07:00 Intake Total 2200 ml Output Total 6620 ml Balance -4420 ml IV Total 1000 ml Other 1200 ml Output Urine Total 600 ml Estimated Blood Loss 20 ml Other 6000 ml Bladder Scan Volume Amount 0 ml Result Diagram: 03/21/17 0646 03/21/17 0646 Other Results Laboratory Tests Test 03/20/17 05:11 03/20/17 09:15 03/21/17 06:46 White Blood Count 7.0 TH/MM3 9.6 TH/MM3 Red Blood Count 4.36 MIL/MM3 4.06 MIL/MM3 Hemoglobin 13.2 GM/DL 12.3 GM/DL Hematocrit 37.2 % 34.5 % Mean Corpuscular Volume 85.3 FL 85.0 FL Mean Corpuscular Hemoglobin 30.2 PG 30.3 PG Mean Corpuscular Hemoglobin Concent 35.4 % 35.6 % Red Cell Distribution Width 12.5 % 12.8 % Platelet Count 195 TH/MM3 169 TH/MM3 Mean Platelet Volume 6.5 FL 7.0 FL Neutrophils (%) (Auto) 55.9 % 72.4 % Lymphocytes (%) (Auto) 30.9 % 15.7 % Monocytes (%) (Auto) 9.4 % 9.0 % Eosinophils (%) (Auto) 3.0 % 1.9 % Basophils (%) (Auto) 0.8 % 1.0 % Neutrophils # (Auto) 3.9 TH/MM3 7.0 TH/MM3 Lymphocytes # (Auto) 2.2 TH/MM3 1.5 TH/MM3 Monocytes # (Auto) 0.7 TH/MM3 0.9 TH/MM3 Eosinophils # (Auto) 0.2 TH/MM3 0.2 TH/MM3 Basophils # (Auto) 0.1 TH/MM3 0.1 TH/MM3 CBC Comment DIFF FINAL DIFF FINAL Differential Comment Blood Urea Nitrogen 24 MG/DL 24 MG/DL Creatinine 1.48 MG/DL 1.87 MG/DL Random Glucose 90 MG/DL 92 MG/DL Calcium Level 8.3 MG/DL 8.5 MG/DL Sodium Level 139 MEQ/L 139 MEQ/L Potassium Level 4.0 MEQ/L 4.1 MEQ/L Chloride Level 107 MEQ/L 108 MEQ/L Carbon Dioxide Level 25.5 MEQ/L 25.9 MEQ/L Anion Gap 7 MEQ/L 5 MEQ/L Estimat Glomerular Filtration Rate 50 ML/MIN 38 ML/MIN Urine Color YELLOW Urine Turbidity HAZY Urine pH 5.5 Urine Specific [place] 1.025 Urine Protein 30 mg/dL Urine Glucose (UA) NEG mg/dL Urine Ketones NEG mg/dL Urine Occult Blood LARGE Urine Nitrite NEG Urine Bilirubin NEG Urine Urobilinogen LESS THAN 2.0 MG/DL Urine Leukocyte Esterase NEG Urine RBC 143 /hpf Urine WBC 1 /hpf Microscopic Urinalysis Comment CULT NOT INDICATED Imaging Last Impressions Abdomen/Pelvis CT 03/20/17 0503 Signed Impressions: Service Date/Time: Monday, March 20, 2017 05:19 - CONCLUSION: 1. There are 2 stones within the left ureter causing moderate to severe left hydronephrosis , hydroureter, and perinephric inflammation. The larger more distal stone measures 6 x 5 mm and the smaller more proximal stone measures 6 x 3 mm. 2. There is an additional 2 mm nonobstructing stone within each kidney. Elijah Hanley MD Objective Remarks General: NAD, AAOx3 Chest: CTA Cardiac: Regular Abd: +BS, soft ND/NT Ext: No edema A/P Problem List: (1) Hydronephrosis, left ICD Codes: N13.30 - Unspecified hydronephrosis Plan: - Patient presented to the ER with complains of severe left flank pain consistent with probable renal colic. Patient has difficulty urinating similar to his prior episode of obstructing renal calculi. Patient has associated nausea but no vomiting. - CT abdomen and pelvis reviewed and reveals there are 2 stones within the left ureter causing moderate to severe left hydronephrosis, hydroureter, para- nephrotic inflammation the large more distal stone measures 6 x 5 mm and a smaller more proximal stone measures 6 x 3 mm. There is additional 2 mm nonobstructing stone in each kidney - He had Kaminski placed at admission. - Pt underwent cystoscopy/ureteroscopy, laser lithotripsy, stone extraction, left double-J stent insertion on 03/21/[address] Mike - Dr. Mike has cleared the pt for discharge to home today - Pt was written prescriptions for Lortab, Pyridium and Cipro by urology at discharge - He will need followup with Dr. Mike in 1 month to undergo cystoscopy with left double-J stent removal. Urology also requesting that the pt have a A CT scan of the abd/pelvis without contrast will be performed prior to that visit. His stones were difficult to visualize on fluoroscopy indicating most likely he has uric acid stone formation. - Pain control PRN - Pt to be discharged home later today (2) Renal calculus, left ICD Codes: N20.0 - Renal calculus, left Status: Acute (3) HTN (hypertension) ICD Codes: I10 - Essential (primary) hypertension Plan: - Patient takes Lisinopril 2.5 mg daily and HCTZ at home will hold this until 03/23/17. - Monitor BP Assessment and Plan Patient examined. Assessment and plan formulated with Emmanuelle Randall PA-C. I agree with the above. discussed with dr Mike. laser to left ureter stone... and removed with basket the fragments..sent to path. lithotripsy to the second mid ureter stone with good fragmentation. stent placed and f/u in office. scripts written per urology. Emmanuelle Randall Mar 21, 2017 14:31 Luis Felipe Simmons MD Mar 21, 2017 14:54
[2017-03-21 14:44] VITALS: BP 129/77; PULSE 86; RESP 18; TEMP 98; O2SAT 94
== END 2017-03-21 17:48 | disposition home or self-care (01) ==
LOC: NEPC 04:30 → NEDA 06:14 → NEPGCP 09:31
PROVIDERS: ADMIT Hospitalist; ATTEND Hospitalist
DX: N13.2 Hydronephrosis with renal and ureteral calculous obstruction (principal); I12.9 Hypertensive chronic kidney disease with stage 1 through stage 4 chronic kidney disease, or unspecified chronic kidney disease; N18.3 Chronic kidney disease, stage 3 (moderate); K21.9 Gastro-esophageal reflux disease without esophagitis; Z87.891 Personal history of nicotine dependence
CPT/HCPCS: 00918; 52356; 74176; 74420; 80048; 81001; 82365; 82370; 85025; 88300; 93005; 96361; 96374; 96375; 96376; 99285; C1769; G0378; J0696; J1100; J1885; J2250; J2270; J2370; J2405; J2710; J3010; J7030; J7120; Q9967